=== PATIENT | female | born 1980 | race Caucasian/White ===

== ENCOUNTER → 2020-05-02 | Day surgery (SDC) | payer OTHER ==
--- NOTE | 2020-05-02 12:53 | RADIOLOGY REPORT (SQ) ---
EXAM DESCRIPTION: ARTHRO WRIST INJECTION; FLUORO/NEEDLE PLACEMENT IMAGES COMPLETED DATE/TIME: 05/02/2020 10:10 am REASON FOR STUDY: PAIN IN RIGHT WRIST M25.531 PAIN IN RIGHT WRIST COMPARISON: None. FLUOROSCOPY TIME: 0.3 minutes of fluoroscopy was used 1 images saved to PACS. LIMITATIONS: None. PROCEDURE: Procedure, risks, benefits and alternatives explained to patient who then gave written co nsent. The right wrist was marked and a time-out was called for correct marking verification. Radioc arpal site marked using fluoroscopic guidance. Wrist prepped and draped using sterile technique. Lo bobbi anesthesia achieved using 1% lidocaine injection. Hypodermic needle introduced into the joint sp peewee under direct fluoroscopic visualization. Non-ionic contrast instilled to confirm intra-articular position. Dilute gadolinium solution then injected. Needle removed and entry site covered with steri le bandage. No immediate complications noted. TECHNIQUE: Digital images acquired during fluoroscopy and stored on PACS. Patient immediately take n to the MR suite for additional imaging. INJECTION LOCATION: Right wrist. CONTRAST TYPE AND AMOUNT: 2 mL Dotarem/Saline mixture. IMPRESSION: SUCCESSFUL NEEDLE PLACEMENT AND INJECTION FOR RIGHT WRIST MR ARTHROGRAM. COMMENT: Quality ID #[id number]: Final reports for procedures using fluoroscopy that document radiation exp osure indices, or exposure time and number of fluorographic images (if radiation exposure indices are not available) TECHNICAL DOCUMENTATION: JOB ID: [id number] 2010 [employer]- All Rights Reserved Reading location - IP/workstation name: [email or web address] [id number]
--- NOTE | 2020-05-02 12:53 | RADIOLOGY REPORT (SQ) ---
EXAM DESCRIPTION: ARTHRO WRIST INJECTION; FLUORO/NEEDLE PLACEMENT IMAGES COMPLETED DATE/TIME: 05/02/2020 10:10 am REASON FOR STUDY: PAIN IN RIGHT WRIST M25.531 PAIN IN RIGHT WRIST COMPARISON: None. FLUOROSCOPY TIME: 0.3 minutes of fluoroscopy was used 1 images saved to PACS. LIMITATIONS: None. PROCEDURE: Procedure, risks, benefits and alternatives explained to patient who then gave written co nsent. The right wrist was marked and a time-out was called for correct marking verification. Radioc arpal site marked using fluoroscopic guidance. Wrist prepped and draped using sterile technique. Lo bobbi anesthesia achieved using 1% lidocaine injection. Hypodermic needle introduced into the joint sp peewee under direct fluoroscopic visualization. Non-ionic contrast instilled to confirm intra-articular position. Dilute gadolinium solution then injected. Needle removed and entry site covered with steri le bandage. No immediate complications noted. TECHNIQUE: Digital images acquired during fluoroscopy and stored on PACS. Patient immediately take n to the MR suite for additional imaging. INJECTION LOCATION: Right wrist. CONTRAST TYPE AND AMOUNT: 2 mL Dotarem/Saline mixture. IMPRESSION: SUCCESSFUL NEEDLE PLACEMENT AND INJECTION FOR RIGHT WRIST MR ARTHROGRAM. COMMENT: Quality ID #[id number]: Final reports for procedures using fluoroscopy that document radiation exp osure indices, or exposure time and number of fluorographic images (if radiation exposure indices are not available) TECHNICAL DOCUMENTATION: JOB ID: [id number] 2010 [employer]- All Rights Reserved Reading location - IP/workstation name: [email or web address] [id number]
--- NOTE | 2020-05-02 14:24 | RADIOLOGY REPORT (SQ) ---
EXAM DESCRIPTION: MRI RT UPPER JOINT WITH IMAGES COMPLETED DATE/TIME: 05/02/2020 10:53 am REASON FOR STUDY: PAIN IN RIGHT WRIST M25.531 PAIN IN RIGHT WRIST COMPARISON: None. TECHNIQUE: Right wrist post-arthrogram imaging includes T1 and T1 and T2 fat sat sequences. LIMITATIONS: None. FINDINGS: JOINT DISTENSION: There is some extravasation but there appears to be adequate intra-artic ular contrast. BONE MARROW: Generally normal. There are subchondral cystic changes in the pisiform. CARPAL ALIGNMENT AND ARTICULATION: Normal. Mild radiocarpal joint space narrowing. SCAPHOLUNATE LIGAMENT: Intact. LUNATO-TRIQUETRAL LIGAMENT: Intact. TFC COMPLEX: Intact. EXTRINSIC LIGAMENTS AND DISTAL RADIO-ULNAR JOINT: Generally intact. No ulnar variance. 1-6 EXTENSOR COMPARTMENTS: Intact as assessed. CARPAL TUNNEL AND MEDIAN NERVE: Mild edema superficially. This lies adjacent to the nerve. No mass effect or compressing ganglion within the carpal tunnel. OTHER: No other significant finding. IMPRESSION: 1. 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 There is also some radiocarpal joint space narrowing. 2. No carpal malalignment or ligament tear suggested. TECHNICAL DOCUMENTATION: JOB ID: [id number] 2010 [employer]- All Rights Reserved Reading location - IP/workstation name: [email or web address]
== END ==
LOC: RAD 09:18 → EDSTATUS 10:00
PROVIDERS: ATTEND Physician Assistant
DX: M25.531 Pain in right wrist (principal)
CPT/HCPCS: 73222; 25246; 77002; A9576